=== PATIENT | female | born 1975 | race African-American/Black ===

== ENCOUNTER 2016-07-17 14:49 | Emergency (ER) | payer MEDICAID ==
[~2016-07-17] VITALS: Ht 180.3 cm; Wt 97.5 kg
[~2016-07-17 14:49] MED LIST: BENADRYL25 M3 PO; BIAXIN500 MG ORAL; CYCLOBENZAPRINE10 MG ORAL; IBUPROFEN600 MG ORAL; IBUPROFEN800 MG ORAL; NKM; TRIAMCINOLONE A60 ML TP
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
[2016-07-17] MEDS ORDERED: ROBAXIN-750750 MG PO (16:14)
[2016-07-17] MEDS ORDERED: IBUPROFEN600 MG ORAL (16:14)
[2016-07-17] MEDS ORDERED: Ketorolac 60mg Inj IM ONE (16:15)
[2016-07-17 16:37] VITALS: BP 132/93
== END 2016-07-17 16:41 | disposition home or self-care (01) ==
LOC: EMR 16:37
DX: M62.838 Other muscle spasm (principal); S16.1XXA Strain of muscle, fascia and tendon at neck level, initial encounter; X58.XXXA Exposure to other specified factors, initial encounter; Y93.84 Activity, sleeping; Y92.009 Unspecified place in unspecified non-institutional (private) residence as the place of occurrence of the external cause
CPT/HCPCS: 96372; 99284

== ENCOUNTER 2016-09-09 13:30 | Emergency (ER) | payer MEDICAID, OTHER ==
[~2016-09-09] VITALS: Ht 180.3 cm; Wt 108.9 kg
[~2016-09-09 13:30] MED LIST changes: +ROBAXIN-750750 MG PO
[2016-09-09] MEDS ORDERED: PREDNISONE20 MG ORAL (13:46)
--- NOTE | 2016-09-09 13:46 | Emergency Room Report ---
History of Present Illness General Chief Complaint: General Complaint Present Illness HPI 41 y/o female c/o URI sxs x 3 days. Assoc sxs include sore throat, nasal congestion, body aches, and chills. States that sxs are worse at night and is not taking any medication currently. States that her children all had URI just prior to onset of sxs which all resolved after a few days. Denies any current n/ v/f/c/d, abd pain, back pain, neck pain, photophobia, phonophobia, CP, SOB or headache. Allergies: Coded Allergies: No Known Allergies (Verified Allergy, Unknown, 12/29/07) Patient History Past Medical History: see triage record Past Surgical History: none Pertinent Family History: none Now: No Immunizations: UTD Reviewed Nursing Documentation: PMH: Agreed, PSxH: Agreed Nursing Documentation-PMH Hx Cardiac Problems: No - rectal prolapce Review of Systems All Other Systems: negative except mentioned in HPI Physical Exam Vital Signs Date Time Temp Pulse Resp B/P Pulse Ox O2 Delivery O2 Flow Rate FiO2 09/09/16 13:34 98.4 101 20 135/88 98 Room Air Sp02 EP Interpretation: reviewed, normal General Appearance: no apparent distress, alert, GCS 15, non-toxic Head: normocephalic, atraumatic Eyes: bilateral eye PERRL, bilateral eye normal inspection ENT: hearing grossly normal, no angioedema, normal voice, TMs + canals normal, uvula midline, nasal congestion, pharyngeal erythema Neck: full range of motion, thyroid normal, no meningismus, supple/symm/no masses Respiratory: chest non-tender, lungs clear, normal breath sounds, speaking full sentences Cardiovascular #1: regular rate, rhythm, no edema Neurologic: alert, oriented x3, responsive, sensory intact, speech normal Psychiatric: judgement/insight normal, memory normal, mood/affect normal, no suicidal/homicidal ideation Skin: normal color, no rash, warm/dry, well hydrated Lymphatic: other - bilateral cervical [employer] Medical Decision Making PA Attestation Dr. Salazar is my supervising physician with whom patient management has been discussed with. Diagnostic Impression: Primary Impression: Upper respiratory infection Qualified Codes: J06.9 - Acute upper respiratory infection, unspecified; B97.89 - Other viral agents as the cause of diseases classified elsewhere ER Course Pt. presents to the ED c/o of sore throat Ddx considered but are not limited to viral pharyngitis, bacterial pharyngitis, tonsillitis, retropharyngeal abscess, peritonsilar abscess, bronchitis, pneumonia, viral upper respiratory tract infection Vital signs: are WNL, pt. is afebrile H&PE are most consistent with viral upper respiratory tract infection ORDERS: none required at this time, the diagnosis is clinical ED INTERVENTIONS: None required at this time. DISCHARGE: At this time pt. is stable for d/c to home. Will provide printed patient care instructions, and any necessary prescriptions. Care plan and follow up instructions have been discussed with the patient prior to discharge. Last Vital Signs Date Time Temp Pulse Resp B/P Pulse Ox O2 Delivery O2 Flow Rate FiO2 09/09/16 13:34 98.4 101 20 135/88 98 Room Air Status: unchanged Disposition: HOME, SELF-CARE Condition: Stable Referrals: NON PHYSICIAN (PCP) Patient Instructions: Upper Respiratory Infection, Adult Additional Instructions: Advised patient to use salt water gargle PRN. Advised patient to use chloraseptic as needed for throat pain in addition to APAP Q4H. Patient advised they can take Ibuprofen and Tylenol Q6H together for fever control as well. Educated patient on rhinitis and encouraged patient to use OTC nasal decongestants, nasal irrigation / saline sprays, and use of nasal suction such as NoseFrida. Educated patient on the benefits of the various OTC medications available (ie. H1 blockers, decongestants, nasal steroids, etc.). If sxs worsen or don't improve, please return sooner. Go to the ER if you develop SOB, CP, Rash, photophobia, neck pain, throat swelling occur, go to the ER immediately. ARIADNA RANGEL September 09, 2016 13:46
[2016-09-09 14:16] VITALS: BP 135/88
[2016-09-09 14:19] VITALS: BP 135/88
[2016-09-09] MEDS ORDERED: PredniSONE 20mg tab ORAL ONE (14:30)
== END 2016-09-09 14:42 | disposition home or self-care (01) ==
LOC: EMR 13:42
DX: J06.9 Acute upper respiratory infection, unspecified (principal)
CPT/HCPCS: 87070; 99282

== ENCOUNTER 2016-12-07 16:10 | Emergency (ER) | payer OTHER ==
[~2016-12-07] VITALS: Ht 180.3 cm; Wt 98.0 kg
[~2016-12-07 16:10] MED LIST changes: +PREDNISONE20 MG ORAL
[2016-12-07 16:25] VITALS: BP 140/85
[2016-12-07] MEDS ORDERED: AFRIN NASAL SPR30 ML NASAL (16:43)
[2016-12-07] MEDS ORDERED: IBUPROFEN600 MG ORAL (16:43)
[2016-12-07] MEDS ORDERED: SUDAFED 12 HOU120 M1 PO (16:43)
[2016-12-07] MEDS ORDERED: Pseudoephedrine 30mg tab ORAL ONE (16:45)
[2016-12-07 18:31] VITALS: BP 151/102
--- NOTE | 2016-12-07 20:29 | Emergency Room Report ---
History of Present Illness General Chief Complaint: Upper Respiratory Illness Source: Patient, Medical Record Present Illness HPI The patient is a 41-year-old female presenting for nasal congestion and cough. Symptoms have been ongoing for one week. Pain is a 9/10 dull ache primarily to the face. Worse with head movement. She denies any known sick contacts recent travel. She denies other symptoms including nausea, vomiting, fever, chills, sore throat, shortness of breath, chest pain Allergies: Coded Allergies: No Known Allergies (Verified Allergy, Unknown, 12/29/07) Patient History Past Medical History: see triage record Pertinent Family History: none Reviewed Nursing Documentation: PMH: Agreed, PSxH: Agreed Nursing Documentation-PMH Past Medical History: No History, Except For Hx Cardiac Problems: No - rectal prolapce Review of Systems All Other Systems: negative except mentioned in HPI Physical Exam Vital Signs Date Time Temp Pulse Resp B/P Pulse Ox O2 Delivery O2 Flow Rate FiO2 12/07/16 16:16 98.1 99 16 131/83 98 Room Air Sp02 EP Interpretation: reviewed, normal General Appearance: no apparent distress, alert, GCS 15, non-toxic Head: normocephalic, atraumatic Eyes: bilateral eye PERRL, bilateral eye normal inspection ENT: hearing grossly normal, normal pharynx, no angioedema, normal voice, uvula midline, nasal congestion, other - TTP over bilat maxillary sinus Neck: full range of motion, supple/symm/no masses Respiratory: chest non-tender, lungs clear, normal breath sounds, speaking full sentences Musculoskeletal: back normal, gait/station normal, normal range of motion, non- tender Neurologic: alert, oriented x3, responsive, motor strength/tone normal, sensory intact, speech normal Psychiatric: judgement/insight normal, memory normal, mood/affect normal, no suicidal/homicidal ideation Skin: normal color, no rash, warm/dry, well hydrated Lymphatic: no adenopathy Medical Decision Making PA Attestation Dr. Salazar is my supervising physician. Patient management was discussed with my supervising physician Diagnostic Impression: Primary Impression: Sinusitis, acute Qualified Codes: J01.00 - Acute maxillary sinusitis, unspecified ER Course The patient is a 41 old female presenting for possible sinusitis Differential diagnosis include but not limited to pharyngitis, sinusitis, AOM, bronchitis, PNA Physical exam: Afebrile. No apparent distress HEENT reveals nasal congestion with maxillary sinus tenderness. Pain is elicited with bending over Otherwise exam is unremarkable The patient will be treated with Afrin and Sudafed. ER precautions are given Last Vital Signs Date Time Temp Pulse Resp B/P Pulse Ox O2 Delivery O2 Flow Rate FiO2 12/07/16 18:31 84 15 151/102 100 Room Air 12/07/16 16:25 98.1 Status: improved Disposition: HOME, SELF-CARE Condition: Improved Scripts Oxymetazoline HCl (Afrin) 15 Ml [place] 2 SPRAYS NASAL TWICE A DAY for 7 Days, SPRAY Prov: PATY CASTRO P.A. 12/07/16 Ibuprofen* (MOTRIN*) 600 Mg Tablet 600 MG ORAL Q8H Y for For Pain, #30 TAB 0 Refills Prov: PATY CASTRO.A. 12/07/16 Pseudoephedrine Hcl (SUDAFED 12 HOUR) 120 Mg Tablet.er 120 MG PO BID, #30 TAB Prov: PATY CASTRO P.A. 12/07/16 Referrals: [facility],REFERRING (PCP) Patient Instructions: Sinusitis, Adult Additional Instructions: I discussed my findings with the patient. All questions and concerns have been answered. Treatment and medication compliance have been addressed. I advised the patient that they need to follow up with PMD in 3-5 days. Return to ED if pain remains or worsens, cough worsens or remains, you notice blood in your sputum, you notice wheezing, you experience a fever, or if needed for any reason. Patient verbalized understanding of discharge instructions. PATY CASTRO Dec 07, 2016 20:29
== END 2016-12-07 18:33 | disposition home or self-care (01) ==
LOC: EMR 16:41
DX: J01.90 Acute sinusitis, unspecified (principal)
CPT/HCPCS: 99284

== ENCOUNTER 2016-12-27 16:20 | Emergency (ER) | payer OTHER ==
[~2016-12-27] VITALS: Ht 180.3 cm; Wt 96.2 kg
[~2016-12-27 16:20] MED LIST changes: +AFRIN NASAL SPR30 ML NASAL; +SUDAFED 12 HOU120 M1 PO
[2016-12-27] MEDS ORDERED: Albuterol ud Inhalation HHN ONE (16:45)
--- NOTE | 2016-12-27 16:53 | Emergency Room Report ---
History of Present Illness General Chief Complaint: Flu Like Symptoms Source: Medical Record Present Illness HPI 41 YO Female presents to the ED c/o continued sinus pressure with 10/10 in severity facial pain and purulent nasal discharge unresponsive to conservative treatment x over 14 days. She reports constant nasal drainage from the nose and down the back of her throat. Patient states that she has been coughing up mucus regularly. Patient states that on occasion it has caused her to vomit due to the amount of posterior nasal drainage. Patient denies fevers or chills. Patient reports continued progression of her previously evaluated symptoms. Patient states she has been utilizing previously prescribed oxymetazoline regularly with no relief for over 10 days. Patient reports history of asthma and increased wheezes due to excessive need to cough to clear mucus. Patient reports one episode of diarrhea last night denies abdominal pain or cramping. Patient denies history of immunocompromise or diabetes. Denies ill contacts. Denies eye pain or swelling of the tissue surrounding her eyes. Denies CP, Palpitations, LOC, AMS, dizziness, Changes in Vision, Sensation , paresthesias, or a sudden severe headache. Allergies: Coded Allergies: No Known Allergies (Verified Allergy, Unknown, 12/29/07) Patient History Past Medical History: see triage record Past Surgical History: none Pertinent Family History: none Last Menstrual Period: years - shot Now: No Immunizations: UTD Reviewed Nursing Documentation: PMH: Agreed, PSxH: Agreed Nursing Documentation-PMH Past Medical History: No History, Except For Hx Cardiac Problems: No - rectal prolapse Review of Systems All Other Systems: negative except mentioned in HPI Physical Exam Vital Signs Date Time Temp Pulse Resp B/P (MAP) Pulse Ox O2 Delivery O2 Flow Rate FiO2 12/27/16 16:31 98.1 112 16 124/79 98 Room Air Sp02 EP Interpretation: reviewed, normal General Appearance: alert, GCS 15, non-toxic, mild distress Head: normocephalic, atraumatic Eyes: bilateral eye normal inspection, bilateral eye PERRL ENT: hearing grossly normal, normal pharynx, no angioedema, normal voice, TMs + canals normal, uvula midline, nasal congestion - moderate opaque nasal d/c, pharyngeal erythema, other - maxillary and frontal sinus pressure, and tenderness to percussion Neck: full range of motion, no meningismus, supple/symm/no masses Respiratory: lungs clear, normal breath sounds, speaking full sentences, wheezing - scant bilateral wheezes Cardiovascular #1: regular rate, rhythm, normal capillary refill, tachycardia Gastrointestinal: normal bowel sounds, non tender, soft, no guarding, no rebound Rectal: deferred Genitourinary: normal inspection, no CVA tenderness Musculoskeletal: back normal, gait/station normal, normal range of motion, non- tender Neurologic: alert, oriented x3, responsive, motor strength/tone normal, sensory intact, speech normal Psychiatric: judgement/insight normal, memory normal, mood/affect normal Skin: normal color, no rash, warm/dry, well hydrated Lymphatic: no adenopathy Medical Decision Making PA Attestation Dr. Monterroso is my supervising Physician whom patient management has been discussed with. Diagnostic Impression: Primary Impression: Bacterial sinusitis Additional Impression: VOMITING, UNSPECIFIED ER Course Pt. presents to the ED c/o continued sinus pressure with purulent nasal discharge unresponsive to conservative treatment x over 14 days. Ddx considered but are not limited to URI, pneumonia, PE, strep pharyngitis, meningitis, Sinusitis, rebound congestion, mucor, GE, acute appendicitis, PUD, diverticulitis, just to name a few. Vital signs: Pt. is afebrile, the remaining VS are WNL H&PE are most consistent with Acute sinusitis lasting over 2 weeks with no response to conservative therapies, pt. also has secondary GE, will r/o . Pt. meets criteria for oral abx treatment at this time. ORDERS: -Urine HCG: Negative ED INTERVENTIONS: -Albuterol Nebulized Treatment -Motrin PO - D/W pt. to D/C all Decongestant use. D/w pt. that she may require ENT evaluation if her symptoms do not improve. I do not suspect an emergent condition at this time. with current presentation pt. is stable for close outpatient follow up. D/w pt. to return to ED with worsening or new symptoms. DISCHARGE: At this time pt. is stable for d/c to home. Will provide printed patient care instructions, and any necessary prescriptions. Care plan and follow up instructions have been discussed with the patient prior to discharge. Last Vital Signs Date Time Temp Pulse Resp B/P (MAP) Pulse Ox O2 Delivery O2 Flow Rate FiO2 12/27/16 16:31 98.1 112 16 124/79 98 Room Air Disposition: HOME, SELF-CARE Condition: Stable Scripts Ondansetron Odt* (ZOFRAN ODT*) 4 Mg Tab.rapdis 4 MG ORAL Q6H Y for Nausea & Vomiting, #10 TAB Prov: Eden Armenta 12/27/16 Codeine/Promethazine Hcl* (PROMETHAZINE-CODEINE SYRUP*) 118 Ml Syrup 5 ML ORAL Q6H, #118 ML 0 Refills Prov: Eden Armenta 12/27/16 Guaifenesin (Guaifenesin) 1,200 Mg Tab.er.12h 1200 MG PO Q12HR for 10 Days, #20 TAB Prov: Eden Armenta 12/27/16 Mometasone Furoate (NASONEX) 17 Gm [place].pump 2 SPRAYS NASAL DAILY, #17 GM 0 Refills Prov: Eden Armenta 12/27/16 Amoxicillin/Potassium Clav 875-125* (AUGMENTIN 875-125 TABLET*) 1 Each Tablet 1 TAB ORAL TWICE A DAY for 10 Days, #20 TAB Prov: Eden Armenta. 12/27/16 Patient Instructions: Nausea and Vomiting, Adult, [id number], Oxymetazoline nasal spray, Sinusitis, Adult, [id number] Additional Instructions: Take medications as directed. DISCONTINUE USE OF ALL NASAL DECONGESTANTS Follow up with a Primary Care Provider in 3-5 days, If your Symptoms persist ENT SPECIALIST EVALUATION IS RECOMMENDED. --Please review list of primary care clinics, if you do not already have a primary care provider Return sooner to ED if new symptoms occur, or current symptoms become worse. Do not drink alcohol, drive, or operate heavy machinery while taking Cough Syrup as this may cause drowsiness. - Please note that this Emergency Department Report was dictated using [employer] technology software, occasionally this can lead to erroneous entry secondary to interpretation by the dictation equipment. Eden Armenta Dec 27, 2016 16:53
[2016-12-27 17:00] VITALS: BP 117/71
[2016-12-27] MEDS ORDERED: GUAIFENESIN1200 MG PO (18:00)
[2016-12-27] MEDS ORDERED: NASONEX17 GM NASAL (18:00)
[2016-12-27] MEDS ORDERED: AUGMENTIN 875-1 EAC1 ORAL (18:00)
[2016-12-27] MEDS ORDERED: PROMETHAZINE-C118 M1 ORAL (18:00)
[2016-12-27] MEDS ORDERED: ZOFRAN ODT4 MG ORAL (18:03)
[2016-12-27 18:35] VITALS: BP 142/71
== END 2016-12-27 18:35 | disposition home or self-care (01) ==
LOC: EMR 16:50
DX: J32.8 Other chronic sinusitis (principal); B96.89 Other specified bacterial agents as the cause of diseases classified elsewhere; R11.10 Vomiting, unspecified
CPT/HCPCS: 81025; 99284

== ENCOUNTER 2017-01-08 11:42 | Emergency (ER) | payer OTHER ==
[~2017-01-08] VITALS: Ht 180.3 cm; Wt 99.8 kg
[~2017-01-08 11:42] MED LIST changes: +AUGMENTIN 875-1 EAC1 ORAL; +GUAIFENESIN1200 MG PO; +NASONEX17 GM NASAL; +PROMETHAZINE-C118 M1 ORAL; +ZOFRAN ODT4 MG ORAL
[2017-01-08 11:45] VITALS: BP 137/93
[2017-01-08] MEDS ORDERED: PREDNISONE20 MG ORAL (12:32)
[2017-01-08] MEDS ORDERED: SUDAFED 12 HOU120 M1 PO (12:32)
[2017-01-08] MEDS ORDERED: ZITHROMAX250 MG ORAL (12:32)
[2017-01-08 12:44] VITALS: BP 137/93
--- NOTE | 2017-01-08 12:57 | Emergency Room Report ---
History of Present Illness General Chief Complaint: Upper Respiratory Illness Source: Patient Present Illness [facility] The patient is a 41-year-old female presenting for sore throat, subjective fever , nasal congestion, and cough for the past 3 weeks. She denies any known sick contacts recent travel. Pain is an 8/10 dull ache to throat. She denies any other symptoms including nausea, vomiting, shortness of breath, chest pain, hemoptysis, abd pain Allergies: Coded Allergies: No Known Allergies (Verified Allergy, Unknown, 12/29/07) Patient History Past Medical History: see triage record Pertinent Family History: none Last Menstrual Period: depo shot Reviewed Nursing Documentation: PMH: Agreed, PSxH: Agreed Nursing Documentation-PMH Past Medical History: No Stated History Hx Cardiac Problems: No - rectal prolapse Review of Systems All Other Systems: negative except mentioned in HPI Physical Exam Vital Signs Date Time Temp Pulse Resp B/P (MAP) Pulse Ox O2 Delivery O2 Flow Rate FiO2 01/08/17 11:45 105 16 Room Air 01/08/17 11:45 98.1 137/93 99 Sp02 EP Interpretation: reviewed, normal General Appearance: no apparent distress, alert, GCS 15, non-toxic Head: normocephalic, atraumatic Eyes: bilateral eye normal inspection, bilateral eye PERRL ENT: no angioedema, normal voice, TMs + canals normal, uvula midline, nasal congestion, tonsillar swelling, pharyngeal erythema Neck: full range of motion, supple/symm/no masses Respiratory: chest non-tender, lungs clear, normal breath sounds, speaking full sentences Cardiovascular #1: regular rate, rhythm, no edema Musculoskeletal: back normal, gait/station normal, normal range of motion, non- tender Neurologic: alert, oriented x3, responsive, motor strength/tone normal, sensory intact, speech normal Psychiatric: judgement/insight normal, memory normal, mood/affect normal, no suicidal/homicidal ideation Skin: normal color, no rash, warm/dry, well hydrated Lymphatic: adenopathy - cervical Medical Decision Making PA Attestation Dr. Lindo is my supervising physician. Patient management was discussed with my supervising physician Diagnostic Impression: Primary Impression: Pharyngitis Qualified Codes: J02.9 - Acute pharyngitis, unspecified Additional Impression: Rhinitis ER Course The patient is a 41-year-old female presenting for sore throat, subjective fever , nasal congestion, and cough Differential diagnosis include but not limited to pharyngitis, sinusitis, AOM, bronchitis, PNA Physical exam: Vitals within normal limits. Afebrile. No apparent distress HEENT exam: There is bilateral tonsillar edema, erythema, and exudate. Uvula midline. Moist mucous membranes. Nasal congestion. There is bilateral cervical lymphadenopathy. Lungs are clear to auscultation bilaterally Skin is warm and dry. No rash The patient will be discharged home with a prescription for antibiotics, steroids, and sudafed and is given ER precautions. Patient will followup with primary care Last Vital Signs Date Time Temp Pulse Resp B/P (MAP) Pulse Ox O2 Delivery O2 Flow Rate FiO2 01/08/17 12:44 98.1 105 16 137/93 99 Room Air Status: improved Disposition: HOME, SELF-CARE Condition: Improved Scripts Prednisone* (PREDNISONE*) 20 Mg Tablet 20 MG ORAL DAILY, #10 TAB 0 Refills Prov: PATY CASTRO P.A. 01/08/17 Pseudoephedrine Hcl (SUDAFED 12 HOUR) 120 Mg Tablet.er 120 MG PO BID, #20 TAB Prov: PATY CASTRO P.A. 01/08/17 Azithromycin* (ZITHROMAX*) 250 Mg Tablet 250 MG ORAL DAILY, #6 TAB 0 Refills Take two tables once daily for 1 day, then one tablet once daily for 4 days. Prov: PATY CASTRO P.A. 01/08/17 Patient Instructions: Pharyngitis, Allergic Rhinitis Additional Instructions: I discussed my findings with the patient. All questions and concerns have been answered. Treatment and medication compliance have been addressed. I advised the patient that they need to follow up with PMD in 3-5 days. Return to ED if pain remains or worsens, cough worsens or remains, you notice blood in your sputum, you notice wheezing, you experience a fever, or if needed for any reason. Patient verbalized understanding of discharge instructions. PATY CASTRO Jan 08, 2017 12:57
== END 2017-01-08 12:44 | disposition home or self-care (01) ==
LOC: EMR 12:16
DX: J02.9 Acute pharyngitis, unspecified (principal); J31.0 Chronic rhinitis
CPT/HCPCS: 99285

== ENCOUNTER 2017-06-12 12:39 | Emergency (ER) | payer OTHER ==
[~2017-06-12] VITALS: Ht 180.3 cm; Wt 99.8 kg
[~2017-06-12 12:39] MED LIST changes: +ZITHROMAX250 MG ORAL
[2017-06-12] MEDS ORDERED: Lidocaine 2% Visc 15ml soln ORAL ONE (13:30)
[2017-06-12] MEDS ORDERED: Albuterol/Ipratropium 3ml neb HHN ONE (13:30)
[2017-06-12 14:15] VITALS: BP 140/88
--- NOTE | 2017-06-12 14:15 | Emergency Room Report ---
History of Present Illness General Chief Complaint: Sore Throat Source: Patient Present Illness HPI 41-year-old female presents to the emergency department complaining of 8/10 in severity sore throat with runny nose, nasal congestion and persistent cough with wheezes x4 days. Patient reports history of asthma she does not have mask her nebulizer at home. Patient reports intermittent fevers and chills she denies recent travel of her children are ill contacts. Patient denies neck pain or stiffness. Denies photophobia, rashes, abdominal pain, nausea, vomiting. Denies CP, Palpitations, LOC, AMS, dizziness, Changes in Vision, Sensation, paresthesias, or a sudden severe headache. Allergies: Coded Allergies: No Known Allergies (Verified Allergy, Unknown, 12/29/07) Patient History Past Medical History: see triage record Past Surgical History: none Pertinent Family History: none Last Menstrual Period: 06/05/17 Now: No : 3 Para: 2 Immunizations: UTD Reviewed Nursing Documentation: PMH: Agreed, PSxH: Agreed Nursing Documentation-PMH Hx Cardiac Problems: No - rectal prolapse Review of Systems All Other Systems: negative except mentioned in HPI Physical Exam Vital Signs Date Time Temp Pulse Resp B/P (MAP) Pulse Ox O2 Delivery O2 Flow Rate FiO2 06/12/17 12:50 97.9 97 18 140/88 97 Room Air 97.9 Sp02 EP Interpretation: reviewed, normal General Appearance: no apparent distress, alert, GCS 15, non-toxic Head: normocephalic, atraumatic Eyes: bilateral eye normal inspection, bilateral eye PERRL ENT: hearing grossly normal, normal voice, TMs + canals normal, uvula midline, moist mucus membranes, nasal congestion, pharyngeal erythema - cobble stone appearance. Neck: full range of motion, no meningismus Respiratory: chest non-tender, lungs clear, normal breath sounds, no rhonchi, speaking full sentences, wheezing Cardiovascular #1: regular rate, rhythm, normal capillary refill Musculoskeletal: back normal, gait/station normal, normal range of motion, non- tender Neurologic: alert, oriented x3, responsive, motor strength/tone normal, sensory intact, speech normal, grossly normal Psychiatric: judgement/insight normal Skin: normal color, no rash, warm/dry, well hydrated Lymphatic: no adenopathy Medical Decision Making PA Attestation Dr. Salazar is my supervising Physician whom patient management has been discussed with. Diagnostic Impression: Primary Impression: Bronchitis Additional Impression: Pharyngitis Qualified Codes: J02.9 - Acute pharyngitis, unspecified ER Course 41-year-old female presents to the emergency department complaining of 8/10 in severity sore throat with runny nose, nasal congestion and persistent cough with wheezes x4 days. Patient reports history of asthma she does not have mask her nebulizer at home. Patient reports intermittent fevers and chills she denies recent travel of her children are ill contacts. Patient denies neck pain or stiffness. Denies photophobia, rashes, abdominal pain, nausea, vomiting. Denies CP, Palpitations, LOC, AMS, dizziness, Changes in Vision, Sensation, paresthesias, or a sudden severe headache. Ddx considered but are not limited to URI, pneumonia, PE, strep pharyngitis, meningitis. Vital signs: Pt.is afebrile VS are WNL H&PE are most consistent with bronchitis and Pharyngitis secondary to PND. ORDERS: none required at this time, the diagnosis is clinical ED INTERVENTIONS: -DuoNEb x1 -Lidocaine PO -Tylenol PO DISCHARGE: At this time pt. is stable for d/c to home. Will provide printed patient care instructions, and any necessary prescriptions. Care plan and follow up instructions have been discussed with the patient prior to discharge. Last Vital Signs Date Time Temp Pulse Resp B/P (MAP) Pulse Ox O2 Delivery O2 Flow Rate FiO2 06/12/17 12:50 97.9 97 18 140/88 97 Room Air 97.9 Disposition: HOME, SELF-CARE Condition: Stable Scripts Acetaminophen* (TYLENOL EXTRA STRENGTH*) 500 Mg Tablet 500 MG ORAL Q6H Y for Mild Pain/Temp > 100.5, #20 TAB 0 Refills Prov: Eden Armenta P.A. 06/12/17 Guaifenesin (Guaifenesin) 1,200 Mg Tab.er.12h 1200 MG PO Q12HR, #20 TAB Prov: Eden Armenta P.A. 06/12/17 Loratadine/Pseudoephedrine (CLARITIN-D 12 HOUR TABLET) 1 Each Tab.er.12h 1 TAB ORAL EVERY 12 HOURS for 5 Days, #10 TAB Prov: Eden Armenta P.A. 06/12/17 Albuterol Sulfate* (ALBUTEROL SULFATE MDI*) 8.5 Gm Hfa.aer.ad 2 PUFF INH Q4H, #1 INH 0 Refills Prov: Eden Armenta 06/12/17 Albuterol Sulfate* (ALBUTEROL SULFATE HHN*) 2.5 Mg/3 Ml Vial.neb 3 ML INH Q4H Y for Shortness of Breath, #30 EA Prov: Eden Armenta 06/12/17 Codeine/Promethazine Hcl* (PROMETHAZINE-CODEINE SYRUP*) 118 Ml Syrup 5 ML ORAL Q6H Y for For Cough, #120 ML 0 Refills Prov: Eden Armenta 06/12/17 Referrals: [facility],REFERRING (PCP) Patient Instructions: Acute Bronchitis, [id number], Sore Throat Additional Instructions: Take medications as directed. Follow up with a Primary Care Provider in 3-5 days, even if your symptoms have resolved. --Please review list of primary care clinics, if you do not already have a primary care provider Return sooner to ED if new symptoms occur, or current symptoms become worse. Do not drink alcohol, drive, or operate heavy machinery while taking Cough Syrup as this may cause drowsiness. - Please note that this Emergency Department Report was dictated using [employer] stamp[employer] machine operator technology software, occasionally this can lead to erroneous entry secondary to interpretation by the dictation equipment. Eden Armenta Jun 12, 2017 14:15
[2017-06-12] MEDS ORDERED: PROMETHAZINE-C118 M1 ORAL (14:17)
[2017-06-12] MEDS ORDERED: TYLENOL EXTRA500 MG ORAL (14:17)
[2017-06-12] MEDS ORDERED: ALBUTEROL SULF8.5 GM INH (14:17)
[2017-06-12] MEDS ORDERED: GUAIFENESIN1200 MG PO (14:17)
[2017-06-12] MEDS ORDERED: CLARITIN-D 121 EAC1 ORAL (14:17)
[2017-06-12] MEDS ORDERED: ALBUTEROL2.5 MG/3 M INH (14:17)
[2017-06-12 14:47] VITALS: BP 138/86
== END 2017-06-12 14:50 | disposition home or self-care (01) ==
LOC: EMR 13:51
DX: J40 Bronchitis, not specified as acute or chronic (principal); J02.9 Acute pharyngitis, unspecified
CPT/HCPCS: 99284; J7620

== ENCOUNTER 2018-02-27 10:46 | Emergency (ER) | payer OTHER ==
[~2018-02-27] VITALS: Ht 180.3 cm; Wt 93.4 kg
[~2018-02-27 10:46] MED LIST changes: +ALBUTEROL SULF8.5 GM INH; +ALBUTEROL2.5 MG/3 M INH; +CLARITIN-D 121 EAC1 ORAL; +TYLENOL EXTRA500 MG ORAL
[2018-02-27 11:36] VITALS: BP 132/69
[2018-02-27] MEDS ORDERED: ALBUTEROL SULF8.5 GM INH (11:44)
--- NOTE | 2018-02-27 11:44 | Emergency Room Report ---
History of Present Illness General Chief Complaint: Flu Like Symptoms Source: Patient Present Illness [facility] This patient c/o 2-3 days of viral URI symptoms including sore throat, rhinitis , nasal congestion, non productive cough. Malaise, myalgias, possibly tactile fever. The patient has no vomiting, chest pain or SOB. No travel history, leg pain/swelling. Allergies: Coded Allergies: No Known Allergies (Verified Allergy, Unknown, 12/29/07) Nursing Documentation-[facility] Past Medical History: No History, Except For Hx Cardiac Problems: No - rectal prolapse Review of Systems Constitutional: Reports: no symptoms Eye: Reports: no symptoms ENT: Reports: no symptoms Respiratory: Reports: no symptoms Cardiovascular: Reports: no symptoms Gastrointestinal: Reports: no symptoms Genitourinary: Reports: no symptoms Musculoskeletal: Reports: no symptoms Skin: Reports: no symptoms Psychiatric: Reports: no symptoms Neurological: Reports: no symptoms Endocrine: Reports: no symptoms Hematologic/Lymphatic: Reports: no symptoms Allergic: Reports: no symptoms All Other Systems: negative except mentioned in HPI Physical Exam Vital Signs Date Time Temp Pulse Resp B/P (MAP) Pulse Ox O2 Delivery O2 Flow Rate FiO2 02/27/18 11:12 98.4 113 22 137/96 97 Room Air Sp02 EP Interpretation: reviewed, normal General Appearance: normal inspection, well appearing, no apparent distress, alert, GCS 15, non-toxic Head: normocephalic, atraumatic Eyes: bilateral eye normal inspection, bilateral eye PERRL, bilateral eye EOMI ENT: hearing grossly normal, normal pharynx, no angioedema, normal voice, moist mucus membranes, pharyngeal erythema Neck: normal inspection, full range of motion, supple, no meningismus, no bony tend Respiratory: normal inspection, lungs clear, normal breath sounds, no rhonchi, no respiratory distress, no retraction, no accessory muscle use, no wheezing Cardiovascular #1: normal inspection, regular rate, rhythm, no edema Gastrointestinal: normal inspection, normal bowel sounds, non tender, soft, no mass, non-distended Musculoskeletal: gait/station normal, normal range of motion Neurologic: normal inspection, alert, oriented x3, responsive, motor strength/ tone normal Psychiatric: normal inspection, judgement/insight normal, memory normal Suicide Risk Assessment: Suicidal Ideation: No Had intent to initiate attempt: No Pt's plan for suicide attempt: No Has means to complete attempt: No Skin: normal inspection, normal color, no rash, warm/dry Medical Decision Making Diagnostic Impression: Primary Impression: URI (upper respiratory infection) Last Vital Signs Date Time Temp Pulse Resp B/P (MAP) Pulse Ox O2 Delivery O2 Flow Rate FiO2 02/27/18 11:36 98.9 78 18 132/69 97 Room Air Status: improved Disposition: HOME, SELF-CARE Condition: Stable Patient Instructions: Upper Respiratory Infection, Pediatric, [id number] Gilbert Hopson M.D. Feb 27, 2018 11:44
[2018-02-27 12:05] VITALS: BP 132/88
== END 2018-02-27 12:05 | disposition home or self-care (01) ==
LOC: EMR 11:53
DX: J06.9 Acute upper respiratory infection, unspecified (principal)
CPT/HCPCS: 99282

== ENCOUNTER 2018-07-03 12:49 | Emergency (ER) | payer SELFPAY ==
[~2018-07-03] VITALS: Ht 180.3 cm; Wt 94.8 kg
[2018-07-03 13:00] VITALS: BP 120/79
--- NOTE | 2018-07-03 13:00 | NUR ---
ED Nurse Note: Pt walked in to ER c/o coughing and face swelling. pt aao x4 and coughing occasionally without any phlem. skin clean and intact.
[2018-07-03] MEDS ORDERED: Lidocaine 2% Visc 15ml soln ORAL ONE (13:30)
[2018-07-03] MEDS ORDERED: Benzonatate 100mg Perles ORAL ONE (13:30)
[2018-07-03] MEDS ORDERED: AUGMENTIN 875-1 EAC1 ORAL (13:30)
[2018-07-03] MEDS ORDERED: TESSALON PERLE100 MG ORAL (13:30)
[2018-07-03] MEDS ORDERED: TYLENOL EXTRA500 MG ORAL (13:30)
[2018-07-03] MEDS ORDERED: CLARITIN-D 121 EAC1 ORAL (13:30)
--- NOTE | 2018-07-03 13:31 | Emergency Room Report ---
History of Present Illness General Chief Complaint: Upper Respiratory Illness Source: Patient Present Illness HPI 42-year-old female patient presents the ER complaining of congestion, cough, sore throat for the past several days. Reports history of similar symptoms in the past, states is never seen ENT specialist. Denies fever during this time. Denies shortness of breath, denies history of heart disease or heart attack. Reports excessive drainage from nose. Reports dry cough, denies hemoptysis. Denies recent travel outside the country. Denies recent periods of immobilization. Reports smoker. States has been using Benadryl and nasal spray for the past 10 days, states has been using longer than like the symptoms due to history of symptoms and wanting to prevent symptom onset. Denies calf pain. Allergies: Coded Allergies: No Known Allergies (Verified Allergy, Unknown, 12/29/07) Patient History Past Medical History: see triage record Last Menstrual Period: 07/01/18 Reviewed Nursing Documentation: PMH: Agreed; PSxH: Agreed Nursing Documentation-PMH Past Medical History: No Stated History Hx Cardiac Problems: No - rectal prolapse Review of Systems All Other Systems: negative except mentioned in HPI Physical Exam Vital Signs Date Time Temp Pulse Resp B/P (MAP) Pulse Ox O2 Delivery O2 Flow Rate FiO2 07/03/18 12:58 98.1 105 18 120/79 98 Room Air Sp02 EP Interpretation: reviewed, normal General Appearance: well appearing, no apparent distress, alert, GCS 15, non- toxic Head: normocephalic, atraumatic, other - Maxillary sinus tenderness palpation, no erythema or edema, no facial droop ENT: hearing grossly normal, normal pharynx, no angioedema, normal voice, TMs + canals normal, uvula midline, moist mucus membranes, nasal congestion, other - No tonsillar exudates Neck: normal inspection, no meningismus, no bony tend Respiratory: lungs clear, normal breath sounds, no rhonchi, no respiratory distress, no accessory muscle use, no wheezing, speaking full sentences, other - Anterior chest tender to palpation no bony deformity, no flail chest Cardiovascular #1: regular rate, rhythm, no edema Musculoskeletal: back normal, digits/nails normal, gait/station normal, normal range of motion, non-tender, no calf tenderness, Shamir's Sign negative Neurologic: alert, oriented x3, responsive, technologist development III-XII nml as tested, motor strength/tone normal, sensory intact, cerebellar normal, normal gait, speech normal Psychiatric: mood/affect normal Skin: no rash Lymphatic: no adenopathy Medical Decision Making PA Attestation Dr. Lindo is my supervising Physician whom patient management has been discussed with. Diagnostic Impression: Primary Impression: Sinusitis ER Course Pt presents to ED c/o cough, congestion, sore throat, chest discomfort. DDX considered but are not limited to influenza, viral URI, pneumonia, strep throat, rhinitis, sinusitis, otitis media, otitis externa. Low suspicion for PE per well's criteria, does not require PE workup at this time. On PE, chest is TTP; chest pain likely musculoskeletal in nature secondary to cough, does not require cardiac workup at this time. Patient instructed to take NSAIDs as needed for pain symptoms. Will order EKG to rule out underlying pathology. VITAL SIGNS are WNL, patient is afebrile. ER COURSE: Provide viscous lidocaine and Tessalon Perles in the ER for symptom relief. Maxillary sinuses tender to palpation, likely sinusitis, will provide patient with medication at discharge. Advised patient not to continue use nasal spray due to likely rhinitis medicamentosa. Due to history of sinus problems and length of symptoms, will provide patient with antibiotics to treat for possible bacterial sinusitis. Follow-up with ENT specialist. Establish care with primary care provider. EKG shows sinus tachycardia with pulse 110 bpm, no ST elevation, patient denies history of heart heart attack or disease, denies chest pain or shortness of breath currently, does not require cardiac workup at this time. Advised patient follow-up with hand endband cutter and discuss referral for cardiac stress test. Lungs clear to auscultation, no wheezes, rhonci or rales. patient afebrile. Low suspicion for pneumonia, will not order CXR at this time. no tonsillar exudates, no pharyngeal erythema, history of cough, no fever, no stridor, uvula midline, low suspicion for peritonsillar abscess. Likely viral etiology of symptoms. Symptomatic treatment. drink plenty of fluids. Salt water gargles for sore throat. Followup with PCP for further treatment and/or referral as needed. ER precautions. DISCHARGE: At this time pt is stable for d/c to home. Patient is resting comfortably, in no acute distress, nontoxic appearing. Patient to take medications as instructed Will provide with patient care instructions and any necessary prescriptions. Care plan and follow-up instructions provided. Patient instructed to follow-up with primary care provider in 3 - 5 days. Patient questions asked and answered. Patient reports understanding and agreement to treatment plan. ER precautions given. Patient instructed to return to ER immediately for any new or worsening of symptoms including but not limited to increasing SOB, persistent fever, intractable vomiting. - Please note that this Emergency Department Report was dictated using [employer] digger operator technology software, occasionally this can lead to erroneous entry secondary to interpretation by the dictation equipment. EKG Diagnostic Results Rate: tachycardiac Rhythm: NSR ST Segments: no acute changes ASA given to the pt in ED: No PA Scribe Text Ti Lee PA-C Rhythm Strip Diag. Results EP Interpretation: yes Rate: 110 Rhythm: no PVC's, no ectopy PA Scribe Text Ti Lee PA-C Last Vital Signs Date Time Temp Pulse Resp B/P (MAP) Pulse Ox O2 Delivery O2 Flow Rate FiO2 07/03/18 12:58 98.1 105 18 120/79 98 Room Air Status: improved Disposition: HOME, SELF-CARE Condition: Stable Scripts Acetaminophen* (TYLENOL EXTRA STRENGTH*) 500 Mg Tablet 500 MG ORAL Q8H PRN for Prn Headache/Temp > 101, #30 TAB 0 Refills Prov: Luis A Lee 07/03/18 Benzonatate* (TESSALON PERLE*) 100 Mg Capsule 100 MG ORAL THREE TIMES A DAY, #30 PERLE Prov: Luis A Lee 07/03/18 Amoxicillin/Potassium Clav 875-125* (AUGMENTIN 875-125 TABLET*) 1 Each Tablet 1 TAB ORAL TWICE A DAY for 7 Days, #14 TAB Prov: Luis A Lee 07/03/18 Loratadine/Pseudoephedrine (CLARITIN-D 12 HOUR TABLET) 1 Each Tab.er.12h 1 TAB ORAL EVERY 12 HOURS, #24 TAB Prov: Luis A Lee 07/03/18 Patient Instructions: Sinusitis, Adult, [id number] Additional Instructions: Followup with primary care provider in 3 -5 days. Follow-up with ENT specialist. Discontinue nasal spray use. Take Claritin during the day and Benadryl at night. Take medications as directed. Patient questions asked and answered. ER precautions given, patient instructed to return to ER immediately for any new or worsening of symptoms. Luis A Lee Jul 03, 2018 13:31
[2018-07-03 13:36] VITALS: BP 127/77
--- NOTE | 2018-07-03 13:37 | NUR ---
ER DISCHARGE NOTE: Patient is cleared to be discharged per ERMD, pt is aox4, accompained by mother, on room air, with stable vital signs. pt was given dc instructions with pharmacy information that prescriptions sent electronically, pt was able to verbalize understanding, pt id band removed. pt is able to ambulate with steady gait. pt took all belongings.
== END 2018-07-03 13:37 | disposition home or self-care (01) ==
LOC: EMR 13:18
DX: J32.9 Chronic sinusitis, unspecified (principal)
CPT/HCPCS: 93005; 99283

== ENCOUNTER 2018-10-02 17:09 | Emergency (ER) | payer OTHER ==
[~2018-10-02] VITALS: Ht 180.3 cm; Wt 92.1 kg
[~2018-10-02 17:09] MED LIST changes: +TESSALON PERLE100 MG ORAL
[2018-10-02 17:17] VITALS: BP 135/94
[2018-10-02 17:46] LABS: APPEARANCE,URINE SLIGHTLY CLOUDY; BILIRUBIN, URINE NEGATIVE (NEGATIVE); COLOR,URINE PALE YELLOW; GLUCOSE, URINE (UA) NEGATIVE (NEGATIVE); KETONES,URINE NEGATIVE (NEGATIVE); LEUKOCYTE ESTERASE ,URINE NEGATIVE (NEGATIVE); NITRITE,URINE NEGATIVE (NEGATIVE); PH,URINE 6 (4.5-8.0); PROTEIN,URINE NEGATIVE (NEGATIVE); UROBILINOGEN,URINE 1 MG/DL (0.0-1.0)
--- NOTE | 2018-10-02 18:09 | Emergency Room Report ---
History of Present Illness General Chief Complaint: Female Urogenital Problems Source: Patient Present Illness HPI 43-year-old female presents to the emergency department complaining of 6 out of 10 severity dysuria, urinary frequency, foul odor of the urine x 1 week and and dark-colored urine x1 hour. She reports her symptoms have been progressive. Patient denies vaginal discharge, lesions, swollen tender lymph nodes or rashes. Patient denies fevers or chills she denies low back pain and denies suspicion for . No aggravating or relieving factors otherwise. Allergies: Coded Allergies: No Known Allergies (Verified Allergy, Unknown, 12/29/07) Patient History Past Medical History: see triage record Past Surgical History: none Pertinent Family History: none Last Menstrual Period: 3 weeks ago Reviewed Nursing Documentation: PMH: Agreed; PSxH: Agreed Nursing Documentation-PMH Past Medical History: No History, Except For Hx Cardiac Problems: No - rectal prolapse Review of Systems All Other Systems: negative except mentioned in HPI Physical Exam Vital Signs Date Time Temp Pulse Resp B/P (MAP) Pulse Ox O2 Delivery O2 Flow Rate FiO2 10/02/18 17:17 98.2 16 135/94 98 Room Air 10/02/18 17:17 97 Sp02 EP Interpretation: reviewed, normal General Appearance: no apparent distress, alert, GCS 15, non-toxic Head: normocephalic, atraumatic Eyes: bilateral eye normal inspection, bilateral eye PERRL ENT: hearing grossly normal, normal voice Neck: full range of motion Respiratory: lungs clear, normal breath sounds, speaking full sentences Cardiovascular #1: regular rate, rhythm Gastrointestinal: normal bowel sounds, non tender, soft, non-distended, no guarding Rectal: deferred Genitourinary: normal inspection, no CVA tenderness Musculoskeletal: back normal, gait/station normal, normal range of motion, non- tender Neurologic: alert, oriented x3, responsive, motor strength/tone normal, sensory intact, speech normal, grossly normal Psychiatric: judgement/insight normal Skin: normal color, no rash, warm/dry, well hydrated Lymphatic: no adenopathy Medical Decision Making PA Attestation Dr. Lindo is my supervising Physician whom patient management has been discussed with. Diagnostic Impression: Primary Impression: UTI (urinary tract infection) ER Course 43-year-old female presents to the emergency department complaining of 6 out of 10 severity dysuria, urinary frequency, foul odor of the urine x 1 week and and dark-colored urine x1 hour. She reports her symptoms have been progressive. Patient denies vaginal discharge, lesions, swollen tender lymph nodes or rashes. Patient denies fevers or chills she denies low back pain and denies suspicion for . No aggravating or relieving factors otherwise. Ddx considered but are not limited to UTi , Pyelo, STI, Stone, Cystitis Vital signs: are WNL, pt. is afebrile H&PE are most consistent with UTI ORDERS: - UA labs are attached -- Positive for UTI ED INTERVENTIONS: PYridium PO. DISCHARGE: At this time pt. is stable for d/c to home. Will provide printed patient care instructions, and any necessary prescriptions. Care plan and follow up instructions have been discussed with the patient prior to discharge. Labs Test 10/02/18 17:38 Urine Color Pale yellow Urine Appearance Slightly cloudy Urine pH 6 (4.5-8.0) Urine Specific [place] 1.020 (1.005-1.035) Urine Protein Negative (NEGATIVE) Urine Glucose (UA) Negative (NEGATIVE) Urine Ketones Negative (NEGATIVE) Urine Blood 3+ (NEGATIVE) Urine Nitrite Negative (NEGATIVE) Urine Bilirubin Negative (NEGATIVE) Urine Urobilinogen 1 MG/DL (0.0-1.0) Urine Leukocyte Esterase Negative (NEGATIVE) Urine RBC 2-4 /HPF (0 - 2) Urine WBC 0-2 /HPF (0 - 2) Urine Squamous Epithelial Cells Moderate /LPF (NONE/OCC) Urine Bacteria Moderate /HPF (NONE) Urine HCG, Qualitative Negative (NEGATIVE) Last Vital Signs Date Time Temp Pulse Resp B/P (MAP) Pulse Ox O2 Delivery O2 Flow Rate FiO2 10/02/18 17:17 98.2 97 16 135/94 (108) 98 Room Air Status: improved Disposition: HOME, SELF-CARE Condition: Stable Scripts Phenazopyridine Hcl* (PYRIDIUM*) 200 Mg Tablet 200 MG ORAL THREE TIMES A DAY for 3 Days, #9 TAB 0 Refills Prov: Eden Armenta 10/02/18 Nitrofurantoin Monohyd/M-Cryst* (MACROBID 100 MG*) 100 Mg Capsule 100 MG ORAL EVERY 12 HOURS for 7 Days, #14 CAP Prov: Eden Armenta 10/02/18 Patient Instructions: Urinary Tract Infection Additional Instructions: Take medications as directed. Follow up with a Primary Care Provider in 3-5 days, even if your symptoms have resolved. --Please review list of primary care clinics, if you do not already have a primary care provider Return sooner to ED if new symptoms occur, or current symptoms become worse. - Please note that this Emergency Department Report was dictated using [employer] executive technology software, occasionally this can lead to erroneous entry secondary to interpretation by the dictation equipment. Eden Armenta Oct 02, 2018 18:09
[2018-10-02] MEDS ORDERED: PHENAZOPYRIDIN200 MG ORAL (18:10)
[2018-10-02] MEDS ORDERED: NITROFURANTOIN100 M2 ORAL (18:10)
[2018-10-02] MEDS: Phenazopyridine 200mg tab ORAL ONE (18:12)
[2018-10-02 18:18] VITALS: BP 127/78
== END 2018-10-02 18:19 | disposition home or self-care (01) ==
LOC: EMR 18:09
DX: N39.0 Urinary tract infection, site not specified (principal)
CPT/HCPCS: 81003; 81025; 87086; 99283

== ENCOUNTER 2018-11-16 16:56 | Emergency (ER) | payer OTHER ==
[~2018-11-16] VITALS: Ht 180.3 cm; Wt 92.1 kg
[~2018-11-16 16:56] MED LIST changes: +NITROFURANTOIN100 M2 ORAL; +PHENAZOPYRIDIN200 MG ORAL
[2018-11-16 17:15] VITALS: BP 155/102
--- NOTE | 2018-11-16 17:20 | NUR ---
ED Nurse Note:pt states one day of sore throat that radiates to left ear. no fever at home/ a/ox4
[2018-11-16 17:59] LABS: APPEARANCE,URINE CLEAR; BILIRUBIN, URINE NEGATIVE (NEGATIVE); COLOR,URINE PALE YELLOW; GLUCOSE, URINE (UA) NEGATIVE (NEGATIVE); KETONES,URINE NEGATIVE (NEGATIVE); LEUKOCYTE ESTERASE ,URINE NEGATIVE (NEGATIVE); NITRITE,URINE NEGATIVE (NEGATIVE); PH,URINE 6 (4.5-8.0); PROTEIN,URINE NEGATIVE (NEGATIVE); UROBILINOGEN,URINE NORMAL MG/DL (0.0-1.0)
--- NOTE | 2018-11-16 18:14 | NUR ---
ED Nurse Note:urine resulted awatis further dispo
[2018-11-16] MEDS ORDERED: PROMETHAZINE-D118 ML ORAL (18:20)
[2018-11-16] MEDS ORDERED: AMOXICILLIN500 MG ORAL (18:20)
[2018-11-16 18:23] VITALS: BP 155/92
--- NOTE | 2018-11-16 18:23 | NUR ---
ER DISCHARGE NOTE: Patient is cleared to be discharged per ERMD, pt is aox4, on room air, with stable vital signs. pt was given dc and prescription instructions, pt was able to verbalize understanding, pt id band removed without complications. pt is able to ambulate with steady gait. pt took all belongings.
--- NOTE | 2018-11-16 21:47 | Emergency Room Report ---
History of Present Illness General Chief Complaint: Sore Throat Source: Patient Present Illness HPI Patient is a 43-year-old female presenting for 3 days of sore throat, cough, and subjective fever. Denies any known sick contacts or recent travel. Pain is a 6 out of 10 dull ache and worse with swallowing. He has taken ibuprofen which does help. She is also complaining of a left breast mass which she noticed approximately 1 month prior. Seems to be changing in size with menstruation. Pain is a 5 out of 10 dull ache and does not radiate. Worse with touch. She denies any nipple discharge Denies other symptoms including N, V, HWANG, CP, SOB, rash, weight loss, night sweats Allergies: Coded Allergies: No Known Allergies (Verified Allergy, Unknown, 12/29/07) Patient History Last Menstrual Period: 10/31/18 Now: No : 2 Para: 2 Reviewed Nursing Documentation: PMH: Agreed; PSxH: Agreed Nursing Documentation-PMH Past Medical History: No History, Except For Hx Cardiac Problems: No - rectal prolapse Review of Systems All Other Systems: negative except mentioned in HPI Physical Exam Vital Signs Date Time Temp Pulse Resp B/P (MAP) Pulse Ox O2 Delivery O2 Flow Rate FiO2 11/16/18 17:02 98.2 76 18 155/102 (119) 99 Room Air Sp02 EP Interpretation: reviewed, normal General Appearance: no apparent distress, alert, GCS 15, non-toxic ENT: hearing grossly normal, normal pharynx, no angioedema, normal voice, uvula midline, nasal congestion, tonsillar swelling, pharyngeal erythema Neck: full range of motion, supple/symm/no masses Respiratory: chest non-tender, lungs clear, normal breath sounds, no wheezing, speaking full sentences Cardiovascular #1: regular rate, rhythm, no edema Musculoskeletal: back normal, gait/station normal, normal range of motion, non- tender Neurologic: alert, oriented x3, responsive, motor strength/tone normal, sensory intact, speech normal Psychiatric: judgement/insight normal, memory normal, mood/affect normal, no suicidal/homicidal ideation Skin: no rash, warm/dry Lymphatic: adenopathy Medical Decision Making PA Attestation Dr. Conrad is my supervising physician. Patient management was discussed with my supervising physician Diagnostic Impression: Primary Impression: Breast pain Additional Impression: Pharyngitis Qualified Codes: J02.9 - Acute pharyngitis, unspecified ER Course Pt is a 43 yo F presenting for sore throat, cough, and breast pain Differential diagnosis include but not limited to pharyngitis, sinusitis, AOM, bronchitis, PNA DDx considered for breast pain: cellulitis, abscess, breast CA, dense breast tissue Physical exam: Vitals within normal limits. Afebrile. No apparent distress HEENT exam: There is bilateral tonsillar edema, erythema. No exudate. Uvula midline. Moist mucous membranes. There is bilateral cervical lymphadenopathy Lungs are clear to auscultation bilaterally Skin is warm and dry. No rash Breast exam done with female nurse in room. L lateral breast has 1cm mobile nodule. TTP. No skin changes. The patient will be discharged home with a prescription for amoxicillin and is given ER precautions. Patient will followup with primary care for further eval including possible mammogram and ultrasound of breast. Laboratory Tests Test 11/16/18 14:21 Urine Color Pale yellow Urine Appearance Clear Urine pH 6 (4.5-8.0) Urine Specific [place] 1.020 (1.005-1.035) Urine Protein Negative (NEGATIVE) Urine Glucose (UA) Negative (NEGATIVE) Urine Ketones Negative (NEGATIVE) Urine Blood 3+ (NEGATIVE) H Urine Nitrite Negative (NEGATIVE) Urine Bilirubin Negative (NEGATIVE) Urine Urobilinogen Normal MG/DL (0.0-1.0) Urine Leukocyte Esterase Negative (NEGATIVE) Urine RBC 10-15 /HPF (0 - 2) H Urine WBC 0-2 /HPF (0 - 2) Urine Squamous Epithelial Cells Many /LPF (NONE/OCC) H Urine Bacteria Few /HPF (NONE) Urine HCG, Qualitative Negative (NEGATIVE) Lab Results Impression UP neg. UA unremarkable Last Vital Signs Date Time Temp Pulse Resp B/P (MAP) Pulse Ox O2 Delivery O2 Flow Rate FiO2 11/16/18 18:23 98.2 76 18 155/92 99 Room Air Status: improved Disposition: HOME, SELF-CARE Condition: Improved Scripts D-Methorphan Hb/Prometh Hcl* (PROMETHAZINE-DM SYRUP*) 118 Ml Syrup 5 ML ORAL Q6H PRN for For Cough, #118 ML 0 Refills Prov: PATY CASTRO P.A. 11/16/18 Amoxicillin* (AMOXIL*) 500 Mg Capsule 500 MG ORAL Q12HR, #20 CAP Prov: PATY CASTRO 11/16/18 Patient Instructions: Breast Tenderness, Sore Throat Additional Instructions: I discussed my findings with the patient. All questions and concerns have been answered. Treatment and medication compliance have been addressed. I advised the patient that they need to follow up with PMD in 3-5 days. Return to ED if symptoms worsen, new symptoms arise, or if needed for any reason. Patient verbalized understanding of discharge instructions. The patient was advised to follow-up with primary doctor in order to obtain further evaluation of breast pain possibly including mammogram and/or ultrasound PATY CASTRO Nov 16, 2018 21:47
== END 2018-11-16 18:24 | disposition home or self-care (01) ==
LOC: EMR 17:12
DX: J02.9 Acute pharyngitis, unspecified (principal); R07.81 Pleurodynia
CPT/HCPCS: 81003; 81025; 99283